=== PATIENT | male | born 2000 | race Asian ===

== ENCOUNTER 2018-03-19 22:59 | Emergency (ER) | payer SELFPAY | END 2018-03-20 00:13 | disposition left against medical advice (07) | LOC: EDUNIT# 22:59 → ER 23:01 | DX: S99.919A Unspecified injury of unspecified ankle, initial encounter (principal); X50.1XXA Overexertion from prolonged static or awkward postures, initial encounter ==

== ENCOUNTER → 2018-03-20 | Outpatient (CLI) | payer OTHER ==
--- NOTE | 2018-03-20 11:32 | Diagnostic Imaging Report ---
Indication: Acute pain in the left knee 3 views of the left knee shows no fracture, dislocation or other bony abnormality. There is a joint effusion. Impression: Joint effusion. No fracture. Report was called to Igor/ joe Gardner by romel at 11:32 am. Dictated by: Dictated on workstation # [id number]
== END ==
LOC: RAD 11:03
PROVIDERS: ATTEND Nurse Practitioner Family
DX: M25.462 Effusion, left knee (principal)
CPT/HCPCS: 73562

== ENCOUNTER → 2018-03-31 | Outpatient (CLI) | payer OTHER ==
--- NOTE | 2018-03-31 11:43 | Diagnostic Imaging Report ---
PROCEDURE: MRI left joint lower extremity without contrast. TECHNIQUE: Multiplanar, multisequence non contrast-enhanced MRI of the left lower extremity was accomplished. INDICATION: Twisting injury of the left knee with left knee pain. COMPARISON: Radiographs from 03/20/2018. FINDINGS: There is motion artifact on multiple sequences. There is moderate bone marrow edema at the distal lateral femur. There is an impaction fracture at the weightbearing aspect of the lateral femoral condyle, with approximately 2-3 mm of depression. Mild bone marrow edema is seen at the distal medial and lateral tibia as well, with no additional fracture seen. There is mild lateral subluxation of the patella. There is a large left knee joint effusion. The articular cartilage in the patellofemoral compartment appears intact. The articular cartilage in the medial and lateral compartments is difficult to evaluate due to motion, but appears intact. The lateral meniscus appears to be intact, although suboptimally visualized. There is a complete radial tear through the posterior horn of the lateral meniscus. The posterior cruciate ligament is intact. There is a full-thickness tear of the mid to proximal anterior cruciate ligament. The medial collateral ligament appears intact. The lateral collateral ligamentous complex also appears intact. The extensor mechanism demonstrates no discrete tear. The medial and lateral retinacula are intact. There is moderate deep soft tissue edema at the anteromedial proximal tibia in the region of the pes anserine. The soft tissues are otherwise unremarkable. IMPRESSION: 1. Impaction fracture at the left lateral femoral condyle with associated bone marrow edema. Edema at the posterior tibia likely represents contusion. 2. Full-thickness tear of the anterior cruciate ligament. 3. Complete radial tear through the posterior horn of the lateral meniscus. 4. Moderate soft tissue edema at the anteromedial aspect of the tibia in the region of the pes anserine, may represent a traumatic bursitis. 5. Large left knee joint effusion. Mild lateral patellar subluxation. Dictated by: Dictated on workstation # [id number]
== END ==
LOC: RAD 09:11
PROVIDERS: ATTEND Nurse Practitioner
DX: S72.422A Displaced fracture of lateral condyle of left femur, initial encounter for closed fracture (principal); S83.512A Sprain of anterior cruciate ligament of left knee, initial encounter; S83.282A Other tear of lateral meniscus, current injury, left knee, initial encounter; S83.012A Lateral subluxation of left patella, initial encounter; S83.242A Other tear of medial meniscus, current injury, left knee, initial encounter; S83.015A Lateral dislocation of left patella, initial encounter; X50.1XXA Overexertion from prolonged static or awkward postures, initial encounter
CPT/HCPCS: 73721

== ENCOUNTER 2021-09-24 22:09 | Emergency (ER) | payer OTHER ==
[~2021-09-24] VITALS: Ht 183 cm; Wt 123.9 kg
[2021-09-24 22:15] VITALS: BP 167/93
[2021-09-24] MEDS ORDERED: FERR236T3 PO (22:22)
[2021-09-24 23:50] LABS: BASOPHILS # (AUTO) 0.1 10^3/uL (0.0-0.1); BASOPHILS % (AUTO) 1 % (0-10); MEAN CORPUSCULAR HEMOGLOBIN 23 pg (25-34); MEAN CORPUSCULAR HGB CONC 30 g/dL (32-36); MEAN CORPUSCULAR VOLUME 77 fL (80-99)
[2021-09-24 23:52] LABS: EOSINOPHILS # (AUTO) 1.2 10^3/uL (0.0-0.3); EOSINOPHILS % (AUTO) 12 % (0-10); HEMATOCRIT 41 % (40-54); HEMOGLOBIN 12.4 g/dL (13.3-17.7); LYMPHOCYTES % (AUTO) 30 % (12-44); MONOCYTES # (AUTO) 1.2 10^3/uL (0.0-1.0); MONOCYTES % (AUTO) 12 % (0-12); NEUTROPHILS # (AUTO) 4.6 10^3/uL (1.8-7.8); NEUTROPHILS % (AUTO) 46 % (42-75); PLATELET COUNT 275 10^3/uL (130-400); WHITE BLOOD COUNT 10.1 10^3/uL (4.3-11.0)
[2021-09-25 00:02] LABS: CHLORIDE 105 MMOL/L (98-107); SODIUM 141 MMOL/L (135-145)
[2021-09-25 00:03] LABS: CALCIUM 9.3 MG/DL (8.5-10.1)
[2021-09-25 00:04] LABS: GLUCOSE 89 MG/DL (70-105)
[2021-09-25 00:05] LABS: TOTAL PROTEIN 7.9 GM/DL (6.4-8.2)
[2021-09-25 00:06] LABS: BILIRUBIN,TOTAL 0.2 MG/DL (0.1-1.0); CARBON DIOXIDE 20 MMOL/L (21-32)
[2021-09-25 00:08] LABS: ALKALINE PHOSPHATASE 54 U/L (40-136); CREATININE SERUM 1.05 MG/DL (0.60-1.30); GFR ESTIMATED 102
[2021-09-25 00:09] LABS: BUN/CREATININE RATIO 11
[2021-09-25 00:11] LABS: ALANINE AMINOTRANSFERASE 28 U/L (0-55); MAGNESIUM 1.9 MG/DL (1.6-2.4)
--- NOTE | 2021-09-25 00:26 | ED General ---
General Chief Complaint: Allergic Reaction Stated Complaint: SOB Nursing Triage Note: c/o increased soa/chest itching x1 day after exposure to cat. Source of Information: Patient History of Present Illness Date Seen by Provider: Sep 24, 2021 Time Seen by Provider: 23:18 Initial Comments PT ARRIVES VIA POV PT STATES HE HAS HAD "A LITTLE TROUBLE BREATHING AND I HAD A LITTLE PAIN HERE"--POINTS TO LEFT UPPER CHEST STATES SYMPTOMS BEGAN TONIGHT AROUND 2129 AND ARE BETTER NOW. ALMOST GONE STATES HE HAS HAD A LITTLE ITCHING TO HIS CHEST NO RASH NO SWELLING ANYWHERE NO DIFFICULTY SWALLOWING OR TALKING NO FEVER OR RECENT ILLNESS NO COUGH PT THINKS HE IS ALLERGIC TO HIS ROOM MATE'S CAT. PT STATES "EVERY TIME I STAY WITH MY ROOM MATE IT HAPPENS" STATES THIS HAS HAPPENED 3-4 TIMES PREVIOUSLY HAS NEVER SOUGHT CARE FOR THIS SYMPTOMS NO DIFFERENT TONIGHT HAS NOT TAKEN ANYTHING FOR SYMPTOMS PT WAS STARTED ON A MEDICATION FOR ANXIETY AND ALSO AN IRON PILL IN THE LAST Wed--SEEN BY DR[facility] ARTHUR AT [facility]. [facility] Allergies and Home Medications Allergies Coded Allergies: No Known Drug Allergies (Unverified , 11/10/17) Patient Home Medication List Home Medication List Reviewed: Yes Ferrous Gluconate (Iron) 236 Mg Tablet, Unknown Dose PO, (Reported) Entered as Reported by: JUVENAL REID on 09/24/212221 Last Action: New Order Review of Systems Review of Systems Constitutional: no symptoms reported EENTM: no symptoms reported Respiratory: see HPI Cardiovascular: see HPI Gastrointestinal: no symptoms reported Genitourinary: no symptoms reported Musculoskeletal: no symptoms reported Skin: see HPI, pruritus; No rash Psychiatric/Neurological: No Symptoms Reported Hematologic/Lymphatic: No Symptoms Reported Past Yuzzgcg-Pxrzzc-Wjhlxz Hx Patient Social History Tobacco Use?: Yes Smoking Status: Current Someday Smoker (NONE X 3 MONTHS) Substance use?: No Alcohol Use?: Yes Alcohol Frequency: Once in a while Pt feels they are or have been: No Immunizations Up To Date Tetanus Booster (TDap): Less than 5yrs PED Vaccines UTD: Yes Seasonal Allergies Seasonal Allergies: No Past Medical History Surgery/Hospitalization HX: left acl, anxiety, anemia Surgeries: Yes (LET KNEE SCOPE/ACL REPAIR 2017) Orthopedic Respiratory: No Cardiac: No Neurological: No Genitourinary: No Gastrointestinal: No Musculoskeletal: Yes (LEFT KNEE SCOPE/ACL REPAIR) Endocrine: No HEENT: No Cancer: No Psychosocial: Yes Anxiety Integumentary: No Blood Disorders: Yes (ANEMIA) Physical Exam Vital Signs Vital Signs - First Documented 09/24/21 22:15 Temp 36.9 Pulse 97 Resp 18 B/P (MAP) 167/93 (117) Pulse Ox 93 O2 Delivery Room Air Capillary Refill : Less Than 3 Seconds Height, Weight, BMI Height: 5'11.00" Weight: 195lbs. oz. 88.877010hz; 36.00 BMI Method:Stated General Appearance: No Apparent Distress, WD/WN HEENT: Normal ENT Inspection Neck: Normal Inspection Respiratory: Chest Non Tender, Normal Breath Sounds, No Accessory Muscle Use, No Respiratory Distress Cardiovascular: Regular Rate, Rhythm, No Edema, No JVD, No Murmur, Normal Peripheral Pulses Gastrointestinal: Soft Extremity: Normal Capillary Refill, Normal Inspection, Normal Range of Motion, Non Tender, No Calf Tenderness, No Pedal Edema Neurologic/Psychiatric: Alert, Oriented x3, No Motor/Sensory Deficits, hosting engineer II- XII Norm as Tested Skin: Normal Color (PT IS DARK SKINNED), Warm/Dry; No Rash Progress/Results/Core Measures Suspected Sepsis SIRS Temperature: Pulse: 97 Respiratory Rate: 18 Laboratory Tests 09/24/21 23:35: White Blood Count 10.1 Blood Pressure 167 /93 Mean: 117 Laboratory Tests 09/24/21 23:35: Creatinine 1.05, Platelet Count 275, Total Bilirubin 0.2 Results/Orders Lab Results Laboratory Tests Test 09/24/21 23:35 Range/Units White Blood Count 10.1 4.3-11.0 10^3/uL Red Blood Count 5.38 4.30-5.52 10^6/uL Hemoglobin 12.4 L 13.3-17.7 g/dL Hematocrit 41 40-54 % Mean Corpuscular Volume 77 L 80-99 fL Mean Corpuscular Hemoglobin 23 L 25-34 pg Mean Corpuscular Hemoglobin Concent 30 L 32-36 g/dL Red Cell Distribution Width 22.5 H 10.0-14.5 % Platelet Count 275 130-400 10^3/uL Mean Platelet Volume 11.0 9.0-12.2 fL Immature Granulocyte % (Auto) 0 % Neutrophils (%) (Auto) 46 42-75 % Lymphocytes (%) (Auto) 30 12-44 % Monocytes (%) (Auto) 12 0-12 % Eosinophils (%) (Auto) 12 H 0-10 % Basophils (%) (Auto) 1 0-10 % Neutrophils # (Auto) 4.6 1.8-7.8 10^3/uL Lymphocytes # (Auto) 3.0 1.0-4.0 10^3/uL Monocytes # (Auto) 1.2 H 0.0-1.0 10^3/uL Eosinophils # (Auto) 1.2 H 0.0-0.3 10^3/uL Basophils # (Auto) 0.1 0.0-0.1 10^3/uL Immature Granulocyte # (Auto) 0.0 0.0-0.1 10^3/uL Percent Immature Platelet Fraction 7.6 0.0-7.6 % Sodium Level 141 135-145 MMOL/L Potassium Level 4.0 3.6-5.0 MMOL/L Chloride Level 105 98-107 MMOL/L Carbon Dioxide Level 20 L 21-32 MMOL/L Anion Gap 16 H 5-14 MMOL/L Blood Urea Nitrogen 12 7-18 MG/DL Creatinine 1.05 0.60-1.30 MG/DL Estimat Glomerular Filtration Rate 102 BUN/Creatinine Ratio 11 Glucose Level 89 70-105 MG/DL Calcium Level 9.3 8.5-10.1 MG/DL Corrected Calcium 9.3 8.5-10.1 MG/DL Magnesium Level 1.9 1.6-2.4 MG/DL Total Bilirubin 0.2 0.1-1.0 MG/DL Aspartate Amino Transf (AST/SGOT) 26 5-34 U/L Alanine Aminotransferase (ALT/SGPT) 28 0-55 U/L Alkaline Phosphatase 54 40-136 U/L Troponin I < 0.028 <0.028 NG/ML B-Type Natriuretic Peptide < 10.0 <100.0 PG/ML Total Protein 7.9 6.4-8.2 GM/DL Albumin 4.0 3.2-4.5 GM/DL My Orders Orders - SUELLEN VERDE DO Ekg Tracing (09/24/21 23:18) Monitor-Rhythm Ecg Trace Only (09/24/21 23:18) Bnp [place] (09/24/21 23:18) Cbc With Automated Diff (09/24/21 23:18) Comprehensive Metabolic Panel (09/24/21 23:18) Magnesium (09/24/21 23:18) Troponin I [place] (09/24/21 23:18) Chest Pa/Lat (2 View) (09/25/21 00:01) Vital Signs/I&O 09/24/21 22:15 Temp 36.9 Pulse 97 Resp 18 B/P (MAP) 167/93 (117) Pulse Ox 93 O2 Delivery Room Air Capillary Refill : Less Than 3 Seconds Blood Pressure Mean: 117 Progress Note : Progress Note UNEVENTFUL ER STAY SYMPTOM-FREE AT DISMISSAL ECG Initial ECG Impression Date: Sep 24, 2021 Initial ECG Impression Time: 23:31 Initial ECG Rate: 91 Initial ECG Rhythm: Normal Sinus Diagnostic Imaging Comments CXR--NO ACUTE PROCESS, PENDING RADIOLOGIST REVIEW Reviewed: Reviewed by Me Departure Impression Primary Impression: SUBJECTIVE DYSPNEA Additional Impressions: CHEST PAIN Anxiety Disposition: 01 HOME, SELF-CARE Condition: Stable Departure-Patient Inst. Decision time for Depature: 00:25 Referrals: [facility] (PCP) Primary Care Physician Patient Instructions: Chest Pain (DC), Chest Pain That Is Not Caused by the Heart (DC) Add. Discharge Instructions: TAKE CLARITIN 10 MG DAILY TYLENOL AND MOTRIN NEEDED FOR PAIN FOLLOW UP WITH [facility] THIS WEEK FOR FURTHER CARE, RETURN TO ER IF SYMPTOMS WORSEN All discharge instructions reviewed with patient and/or family. Voiced understanding. SUELLEN VERDE DO Sep 25, 2021 00:25
--- NOTE | 2021-09-25 06:45 | Diagnostic Imaging Report ---
INDICATION: Chest pain and dyspnea PA and lateral views of the chest are obtained with comparison made to study of 11/10/2018 FINDINGS: Heart size and pulmonary vascularity are within normal limits, and the lungs are clear, bilaterally. IMPRESSION: Unremarkable chest. Dictated by: Dictated on workstation # [id number]
== END 2021-09-25 00:48 | disposition home or self-care (01) ==
LOC: EDUNIT# 22:09 → ER 22:12
DX: R06.00 Dyspnea, unspecified (principal); R07.9 Chest pain, unspecified; F41.9 Anxiety disorder, unspecified; F17.290 Nicotine dependence, other tobacco product, uncomplicated
CPT/HCPCS: 36415; 71046; 80053; 83735; 83880; 84484; 85025; 93005

== ENCOUNTER 2021-11-04 23:22 | Emergency (ER) | payer OTHER ==
[~2021-11-04] VITALS: Ht 180.3 cm; Wt 122.9 kg
[~2021-11-04 23:22] MED LIST: FERR236T3 PO
[2021-11-05 01:53] LABS: BASOPHILS # (AUTO) 0.1 10^3/uL (0.0-0.1); BASOPHILS % (AUTO) 1 % (0-10); EOSINOPHILS # (AUTO) 0.7 10^3/uL (0.0-0.3); EOSINOPHILS % (AUTO) 6 % (0-10); HEMATOCRIT 43 % (40-54); HEMOGLOBIN 13.7 g/dL (13.3-17.7); LYMPHOCYTES # (AUTO) 3.1 10^3/uL (1.0-4.0); LYMPHOCYTES % (AUTO) 28 % (12-44); MEAN CORPUSCULAR HEMOGLOBIN 27 pg (25-34); MEAN CORPUSCULAR HGB CONC 32 g/dL (32-36); MEAN CORPUSCULAR VOLUME 85 fL (80-99); MEAN PLATELET VOLUME 10.6 fL (9.0-12.2); MONOCYTES # (AUTO) 1.3 10^3/uL (0.0-1.0); MONOCYTES % (AUTO) 11 % (0-12); NEUTROPHILS # (AUTO) 6.2 10^3/uL (1.8-7.8); NEUTROPHILS % (AUTO) 54 % (42-75); PLATELET COUNT 257 10^3/uL (130-400); WHITE BLOOD COUNT 11.4 10^3/uL (4.3-11.0)
[2021-11-05 02:03] LABS: CALCIUM 9.4 MG/DL (8.5-10.1)
[2021-11-05 02:04] LABS: TOTAL PROTEIN 7.5 GM/DL (6.4-8.2)
[2021-11-05 02:06] LABS: BILIRUBIN,TOTAL 0.3 MG/DL (0.1-1.0)
[2021-11-05 02:08] LABS: CREATININE SERUM 0.96 MG/DL (0.60-1.30)
[2021-11-05 03:11] LABS: AMPHETAMINE SCREEN, URINE NEGATIVE (NEGATIVE); BARBITURATE SCREEN URINE NEGATIVE (NEGATIVE); BENZODIAZEPINES SCREEN URINE NEGATIVE (NEGATIVE); CANNABINOID SCREEN, URINE NEGATIVE (NEGATIVE); COCAINE SCREEN URINE NEGATIVE (NEGATIVE); METHADONE STAT NEGATIVE (NEGATIVE); OPIATE SCREEN URINE NEGATIVE (NEGATIVE); OXYCODONE STAT NEGATIVE (NEGATIVE); PROPOXYPHENE STAT NEGATIVE (NEGATIVE); TRICYCLIC ANTIDEPRESSANTS SCRE NEGATIVE (NEGATIVE)
--- NOTE | 2021-11-05 04:09 | ED General ---
General Chief Complaint: Abdominal/GI Problems Stated Complaint: DIZZY,FEELS FAINT Nursing Triage Note: pt ambulates to rm 3 with complaint of feeling nauseous and head spinning. Pt also complains of chest pain and abdominal pain. History of Present Illness Date Seen by Provider: November 05, 2021 Time Seen by Provider: 01:24 Initial Comments 21-year-old male with PMH of asthma/ Anxiety/ Depression, is here with complaints of lightheadedness and nausea which began last night. Pt was started on Escitalopram the other day and he feels that he began these symptoms after starting this new medication. Denies chest pain, SOB, cough, Fever, diarrhea, nausea, vomiting. Allergies and Home Medications Allergies Coded Allergies: No Known Drug Allergies (Unverified , 11/10/17) Patient Home Medication List Home Medication List Reviewed: Yes Ferrous Gluconate (Iron) 236 Mg Tablet, Unknown Dose PO, (Reported) Entered as Reported by: JUVENAL REID on 09/24/212221 Review of Systems Review of Systems Constitutional: no symptoms reported EENTM: no symptoms reported Respiratory: no symptoms reported Cardiovascular: no symptoms reported Gastrointestinal: abdominal pain (LUQ) Genitourinary: no symptoms reported Musculoskeletal: no symptoms reported Skin: no symptoms reported Psychiatric/Neurological: Other (dizziness) Hematologic/Lymphatic: No Symptoms Reported Past Ixlvmmh-Aslxqz-Xyrxum Hx Patient Social History Tobacco Use?: No Use of E-Cig and/or Vaping dev: Yes E-Cig or Vaping type used: Nicotine Use of E-Cig and/or Vaping [place]: Current Everyday User Substance use?: No Alcohol Use?: No Immunizations Up To Date Tetanus Booster (TDap): Less than 5yrs PED Vaccines UTD: Yes Influenza Vaccine Up-to-Date: Yes; Up-to-Date Seasonal Allergies Seasonal Allergies: No Past Medical History Surgery/Hospitalization HX: left acl, anxiety, anemia Surgeries: Yes (LET KNEE SCOPE/ACL REPAIR 2018) Orthopedic Respiratory: No Cardiac: No Neurological: No Genitourinary: No Gastrointestinal: No Musculoskeletal: Yes (LEFT KNEE SCOPE/ACL REPAIR) Endocrine: No HEENT: No Cancer: No Psychosocial: Yes Anxiety Integumentary: No Blood Disorders: Yes (ANEMIA) Physical Exam Vital Signs Vital Signs - First Documented 11/05/21 00:30 Temp 36.9 Pulse 100 B/P (MAP) 162/95 (117) Pulse Ox 97 O2 Delivery Room Air Capillary Refill : Height, Weight, BMI Height: 5'11.00" Weight: 195lbs. oz. 88.249615jg; 37.00 BMI Method:Stated General Appearance: No Apparent Distress HEENT: PERRL/EOMI Neck: Full Range of Motion, Normal Inspection, Non Tender, Supple Respiratory: Chest Non Tender, Lungs Clear, Normal Breath Sounds, No Accessory Muscle Use, No Respiratory Distress Cardiovascular: Regular Rate, Rhythm Gastrointestinal: Normal Bowel Sounds, No Pulsatile Mass, Soft, Tenderness (LUQ and epigastric) Back: Normal Inspection, No CVA Tenderness Neurologic/Psychiatric: Alert, Oriented x3, No Motor/Sensory Deficits, Normal Mood/Affect Progress/Results/Core Measures Suspected Sepsis SIRS Temperature: Pulse: 100 Respiratory Rate: Laboratory Tests 11/05/21 01:47: White Blood Count 11.4H Blood Pressure 162 /95 Mean: 117 Laboratory Tests 11/05/21 01:47: Creatinine 0.96, Platelet Count 257, Total Bilirubin 0.3 Results/Orders Lab Results Laboratory Tests Test 11/05/21 01:47 11/05/21 02:49 Range/Units White Blood Count 11.4 H 4.3-11.0 10^3/uL Red Blood Count 5.06 4.30-5.52 10^6/uL Hemoglobin 13.7 13.3-17.7 g/dL Hematocrit 43 40-54 % Mean Corpuscular Volume 85 80-99 fL Mean Corpuscular Hemoglobin 27 25-34 pg Mean Corpuscular Hemoglobin Concent 32 32-36 g/dL Red Cell Distribution Width 20.5 H 10.0-14.5 % Platelet Count 257 130-400 10^3/uL Mean Platelet Volume 10.6 9.0-12.2 fL Immature Granulocyte % (Auto) 0 % Neutrophils (%) (Auto) 54 42-75 % Lymphocytes (%) (Auto) 28 12-44 % Monocytes (%) (Auto) 11 0-12 % Eosinophils (%) (Auto) 6 0-10 % Basophils (%) (Auto) 1 0-10 % Neutrophils # (Auto) 6.2 1.8-7.8 10^3/uL Lymphocytes # (Auto) 3.1 1.0-4.0 10^3/uL Monocytes # (Auto) 1.3 H 0.0-1.0 10^3/uL Eosinophils # (Auto) 0.7 H 0.0-0.3 10^3/uL Basophils # (Auto) 0.1 0.0-0.1 10^3/uL Immature Granulocyte # (Auto) 0.1 0.0-0.1 10^3/uL Sodium Level 140 135-145 MMOL/L Potassium Level 4.0 3.6-5.0 MMOL/L Chloride Level 103 98-107 MMOL/L Carbon Dioxide Level 24 21-32 MMOL/L Anion Gap 13 5-14 MMOL/L Blood Urea Nitrogen 15 7-18 MG/DL Creatinine 0.96 0.60-1.30 MG/DL Estimat Glomerular Filtration Rate 114 BUN/Creatinine Ratio 16 Glucose Level 98 70-105 MG/DL Calcium Level 9.4 8.5-10.1 MG/DL Corrected Calcium 9.4 8.5-10.1 MG/DL Total Bilirubin 0.3 0.1-1.0 MG/DL Aspartate Amino Transf (AST/SGOT) 23 5-34 U/L Alanine Aminotransferase (ALT/SGPT) 29 0-55 U/L Alkaline Phosphatase 51 40-136 U/L Total Protein 7.5 6.4-8.2 GM/DL Albumin 4.0 3.2-4.5 GM/DL Lipase 11 8-78 U/L Urine Opiates Screen NEGATIVE NEGATIVE Urine Oxycodone Screen NEGATIVE NEGATIVE Urine Methadone Screen NEGATIVE NEGATIVE Urine Propoxyphene Screen NEGATIVE NEGATIVE Urine Barbiturates Screen NEGATIVE NEGATIVE Ur Tricyclic Antidepressants Screen NEGATIVE NEGATIVE Urine Phencyclidine Screen NEGATIVE NEGATIVE Urine Amphetamines Screen NEGATIVE NEGATIVE Urine Methamphetamines Screen NEGATIVE NEGATIVE Urine Benzodiazepines Screen NEGATIVE NEGATIVE Urine Cocaine Screen NEGATIVE NEGATIVE Urine Cannabinoids Screen NEGATIVE NEGATIVE My Orders Orders - KATY VILLA MD Ekg Tracing (11/05/21 00:26) Cbc With Automated Diff (11/05/21 01:31) Comprehensive Metabolic Panel (11/05/21 01:31) Ct Abdomen/Pelvis Wo (11/05/21 01:47) Lipase (11/05/21 01:49) Ua Culture If Indicated (11/05/21 01:49) Drug Screen Stat (Urine) (11/05/21 01:49) Vital Signs/I&O 11/05/21 00:30 Temp 36.9 Pulse 100 B/P (MAP) 162/95 (117) Pulse Ox 97 O2 Delivery Room Air Capillary Refill : Blood Pressure Mean: 117 Progress Note : Progress Note 1. Escitalopram side effects: - Pt has side effects of dizziness, nausea, dyspepsia, headache - Toradol injection for headachd - Labs unremarkable - CT abd is normal - Follow up with PCP and PSych and advised pt to inform Psychiatrist of medication side effects. He has a PCP appointment in the coming week at [facility]. -The patient was seen in the ED, and treated appropriately to presentation at a specific point in time. Patient is informed that there is a possibility that disease and illness can evolve and change in acuity rapidly or slowly after patient is discharged from the ER. Precautionary advice given to the patient for immediate return to ER if symptoms worsen or do not resolve, and to seek emergency care sooner rather than later. Pt also advised on the importance of PCP follow up and compliance with management and follow up plan with PCP and/or specialist, as this is part of the management plan. Pt verbally expressed understanding. ECG Initial ECG Impression Date: November 05, 2021 Initial ECG Impression Time: 13:00 Initial ECG Rate: 89 Initial ECG Rhythm: Normal Sinus Initial ECG Intervals: Normal Initial ECG Impression: Normal Diagnostic Imaging Diagonstic Imaging: CT Plain Films/CT/US/NM/MRI: abdomen Departure Impression Primary Impression: Medication side effects Disposition: 01 HOME, SELF-CARE Condition: Stable Departure-Patient Inst. Referrals: [facility] (PCP/Family) Primary Care Physician Patient Instructions: Side Effects From Medicines Add. Discharge Instructions: - Follow up with PCP and PSychiatry within the next 3 days. All discharge instructions reviewed with patient and/or family. Voiced understanding. Work/School Note: School/Childcare Release Date Seen in the Emergency Department: November 05, 2021 Time Dismissed from Emergency Department: 04:30 Return to School: November 07, 2021 Restrictions: No Restrictions KATY VILLA MD November 05, 2021 04:09
[2021-11-05 04:22] VITALS: BP 150/94
--- NOTE | 2021-11-05 06:17 | Diagnostic Imaging Report ---
PROCEDURE: CT abdomen and pelvis without contrast. TECHNIQUE: Multiple contiguous axial images were obtained through the abdomen and pelvis without the use of intravenous contrast. Auto Exposure Controls were utilized during the CT exam to meet ALARA standards for radiation dose reduction. INDICATION: Diarrhea. I have no relevant comparison. FINDINGS: Lung bases nonacute. Liver, gallbladder, bile ducts, spleen, adrenals and pancreas all nonacute. There are no opaque kidney stones. There is no hydroureteronephrosis. There is no appendicitis or diverticulitis. No small or large bowel wall thickening. No perienteric or pericolonic edema. No ascites, abscess, hematoma or acute fluid collection. There is no pneumatosis or free air. IMPRESSION: Unremarkable abdominal pelvic CT. No obstructive or inflammatory process identified. Dictated by: Dictated on workstation # [id number]
== END 2021-11-05 04:24 | disposition home or self-care (01) ==
LOC: EDUNIT# 23:22 → ER 23:27
DX: R42 Dizziness and giddiness (principal); R51.9 Headache, unspecified; R10.13 Epigastric pain; T43.225A Adverse effect of selective serotonin reuptake inhibitors, initial encounter; F41.9 Anxiety disorder, unspecified; F32.9 Major depressive disorder, single episode, unspecified
CPT/HCPCS: 36415; 74176; 80053; 80306; 83690; 85025; 93005